=== PATIENT | female | born 1950 | race Caucasian/White ===

== ENCOUNTER 2017-03-10 10:56 | Emergency (ER) | payer MEDICARE, OTHER ==
[2017-03-10 11:55] LABS: ADD MAN DIFF? NO
[2017-03-10 11:59] LABS: BASO % 0 % (0-3); EOS # 0.2 x10^3/uL (0.0-0.7); EOS % 3 % (0-3); HEMATOCRIT 39.9 % (36.0-47.0); LYMPH # 1.7 x10^3/uL (1.0-4.8); LYMPH % 22 % (24-48); MEAN CORPUSCULAR HEMOGLOBIN 28 pg (25-35); MEAN CORPUSCULAR HGB CONC 33 g/dL (31-37); MEAN CORPUSCULAR VOLUME 86 fL (79-100); MONO # 0.4 x10^3/uL (0.0-1.1); MONO % 5 % (0-9); NEUT # 5.3 x10^3uL (1.8-7.7); NEUT % 69 % (31-73); PLATELET COUNT 136 x10^3/uL (140-400); RED BLOOD COUNT 4.62 x10^6/uL (3.50-5.40); WHITE BLOOD COUNT 7.6 x10^3/uL (4.0-11.0)
[2017-03-10] MEDS: IPRATRPIUM/ALBUTEROL 0.5/2.5MG 3 ML NEBU. NEB (12:00)
[2017-03-10 12:06] LABS: ANION GAP 6 (6-14); BLOOD UREA NITROGEN 12 mg/dL (7-20); BUN/CREATININE RATIO 20 (6-20); CALCIUM 8.4 mg/dL (8.5-10.1); CARBON DIOXIDE 34 mmol/L (21-32); CHLORIDE 104 mmol/L (98-107); CREATININE 0.6 mg/dL (0.6-1.0); GFR 100.3; GLUCOSE 108 mg/dL (70-99); POTASSIUM 3.9 mmol/L (3.5-5.1); SODIUM 144 mmol/L (136-145)
[2017-03-10] MEDS: methylPREDNISolone SOD SUCC PF 125 MG/2 ML VIAL. IV (12:09)
[2017-03-10 12:11] LABS: ALBUMIN 3.4 g/dL (3.4-5.0); ALBUMIN/GLOBULIN RATIO 0.9 (1.0-1.7); ALK PHOS 90 U/L (46-116); ALT (SGPT) 24 U/L (14-59); AST (SGOT) 23 U/L (15-37); TOTAL BILIRUBIN 0.3 mg/dL (0.2-1.0); TOTAL PROTEIN 7.1 g/dL (6.4-8.2)
== END 2017-03-10 12:47 | disposition home or self-care (01) ==
LOC: ER 10:56
DX: J40 Bronchitis, not specified as acute or chronic (principal); I10 Essential (primary) hypertension; E78.00 Pure hypercholesterolemia, unspecified; Z88.0 Allergy status to penicillin; Z90.49 Acquired absence of other specified parts of digestive tract; Z90.710 Acquired absence of both cervix and uterus; Z98.51 Tubal ligation status
CPT/HCPCS: 36415; 71046; 80053; 85025; 93005; 94640; 96374; 99285-25; J2930; J7620

== ENCOUNTER → 2018-07-05 | Outpatient (CLI) | payer MEDICARE ==
[2017-03-10 12:00] VITALS: BP 180/74
[~2018-07-05] MED LIST: ALBU0.63 NEB; IPRA3AMP29 NEB; PRED50TA PO
--- NOTE | 2018-07-05 13:15 | RAD ---
ABDOMEN COMPLETE History: Abdominal pain, abdominal aortic aneurysm Comparison: None. Findings: Multiple sonographic images of the abdomen are submitted. Exam is limited due to patient's body habitus. There is no abnormality of the visualized pancreas. No focal hepatic lesion is demonstrated. There is some coarsening of the hepatic echotexture. Right lobe liver measured about 20.6 cm longitudinal. Proximal abdominal aorta measured up to 1.8 cm. Mid abdominal aorta is slightly dilated about 3.4 cm x 3.7 cm in axial planes. Distal abdominal aorta is poorly demonstrated. There is segmental visualization of the inferior vena cava. Right kidney measured 11.2 x 4.7 x 4.5 cm, no hydronephrosis. Left kidney measured 11.7 x 4.8 x 4.8 cm, no hydronephrosis. There is hypoechoic lesion of the mid to superior right kidney with increased through transmission about 1.2 x 1.1 x 1.3 cm, some internal echoes. There are some vessels near the periphery although the lesion is located near the hilar region. The gallbladder is present, small 0.6 cm focus of dependent echogenicity which may be a small gallstone. There is no gallbladder wall thickening or pericholecystic fluid. Spleen measured 12.3 cm. Impression: 1. There is infrarenal abdominal aortic aneurysm up to 3.7 cm, distal abdominal aorta poorly distinguished on this exam. 2. There is hepatic steatosis and hepatomegaly. 3. There is a hypoechoic lesion of the mid to superior right kidney which may be a somewhat complex cyst, some internal echoes and some vessels near the periphery although vessels may be related to the other renal hilar vessels. Six-month follow-up may be beneficial to evaluate stability. 4. There is likely small gallstone. Electronically signed by: Adams Barillas MD (07/05/2018 1:13 PM) [facility][email or web address]
== END | disposition home or self-care (01) ==
LOC: US 09:13
PROVIDERS: ATTEND Physician Assistant
DX: I71.4 Abdominal aortic aneurysm, without rupture (principal); K76.0 Fatty (change of) liver, not elsewhere classified; R91.1 Solitary pulmonary nodule
CPT/HCPCS: 76700

== ENCOUNTER → 2019-02-13 | Outpatient (CLI) | payer MEDICARE ==
[2019-01-17 10:03] VITALS: BP 154/70
[~2019-02-13] MED LIST changes: +AMLO5TAB10 PO; +ASPI-612 PO; +ATOR80TA72 PO; +LOSA100T14 PO; +METO25TA4 PO; +MULT-496 PO; +OMEP40CA45 PO; +RANI150C PO; +REGADENOSON 0.4 MG/5 ML DISP.SYRIN. IV ONE; +ROPI0.25 PO; +SERT100T PO
--- NOTE | 2019-02-13 12:02 | RAD ---
MR#: [id number] Date of Study: 02/13/2019 Ordering Physician: ROSAURA MOSQUERA, Referring Physician: CANDIS AMATO Tech: RT Paulo (R) (N) APPROVED REPORT Test Type: Pharmacological Stress Nurse/Tech: Rachel Eason RN Test Indications: dyspnea, chest pain Cardiac History: HTN, x-smoker Medications: See Electronic Medical Record Medical History: See Electronic Medical Record Resting ECG: SR Resting Heart Rate: 61 bpm Resting Blood Pressure: 165/74mmHg Pretest Chest Pain: None Nurse/Tech Notes lungs CTA, S1S2 Consent: The procedure was explained to the patient in lay terms. Informed consent was witnessed. Jose eout was entered into [employer]. History and Stress Test performed by Rachel Eason RN Pharm. Details Pharmacologic stress testing was performed using 0.4mg per 5ml of regadenoson given intravenously ove r 7-10 seconds. Stress Symptoms Dyspnea, no chest pain POST EXERCISE Reason for Termination: Infusion complete Max HR: 78 bpm Max Blood Pressure: 179/73mmHg Blood Pressure response to exercise: Normal blood pressure response during stress. Heart Rate response to exercise: normal response Chest Pain: No. Arrhythmia: No. ST Change: No. INTERPRETATION Stress EKG Conclusion: The resting EKG shows a sinus rhythm and minimal nonspecific ST T wave changes . The stress EKG shows no significant changes from baseline. No EKG evidence of stress induced ischemia. Imaging Protocol IMAGE PROTOCOL: Rest Tc-99m/stress Tc-99m 1 day Rest: Stress: Viability: Radiopharm.Tc99m ZqwxsypjeTs91c Sestamibi Dose11.3mCi 33mCi Duration 15min. 10min. Img Date 02/13/2019 02/13/2019 Inj-Img Fhpy81ibf. 60min. Rest Admin Site:IV - Left AntecubitalAdministrator:RT Paulo (R)(N) Stress Admin Site: IV - Left AntecubitalAdministrator: XAVIER Garza STRESS DATA End Diast. Vol.88.0mlAv. Heart Rate68.0bpm End Syst. Vol.20.0mlCO Index BSA0.0L/min Myocardial Brya811.0gEject. Ijzipcub95.0% Stress Rates Pk. Fill Rate3.32EDV/secLVtime Pk. Fill 248.71msec Pk. Empty Rate4.00ESV/secLVtime Pk. Cfkci480.57msec 1/3 Pk. Fill1.40EDV/sec Stress Scores Regional WT0.00Summed WT0.00 Regional WM0.00Summed WM0.00 LV Perfusion The stress scans show slight distal anterior thinning but not a clear defect. The rest scans show no significant defects. Nuclear images show no infarct. Nuclear images show no clear reversible ischemia although there is slight distal anterior thinning. Wall Motion LV systolic function is normal with an ejection fraction of > 70%. LV Perf. Quant 17 Seg. SSS1.00 17 Seg. SRS1.00 17 Seg. SDS1.00 Stress Defect Extent (% LAD)8.80Rest Defect Extent (% LAD)0.00Rev. Defect Extent (% LAD)3.80 Stress Defect Extent (% LCX) 0.00Rest Defect Extent (% LCX)0.00Rev. Defect Extent (% LCX)0.00 Stress Defect Extent (% RCA)0.00Rest Defect Extent (% RCA)0.00Rev. Defect Extent (% RCA)0.00 Stress Defect Extent (% LYNETTE)3.00Rest Defect Extent (% LYNETTE)0.00Rev. Defect Extent (% LYNETTE)1.30 Conclusion 1. No EKG evidence of stress induced ischemia. 2. Nuclear images show no infarct. 3. Nuclear images show no clear reversible ischemia although the distal anterior wall has slight thin jyothi. 4. Normal LV systolic function with an EF of > 70%. 5. Moderately low risk Lexiscan nuclear stress test. Signed by : Berto Melo MD Electronically Approved : 02/13/2019 12:01:43
== END | disposition home or self-care (01) ==
LOC: NM 08:08
PROVIDERS: ATTEND Internal Medicine Cardiovascular Disease
DX: R06.09 Other forms of dyspnea (principal); R07.9 Chest pain, unspecified; I10 Essential (primary) hypertension; Z87.891 Personal history of nicotine dependence
CPT/HCPCS: 78452; 93017; A9500; J2785

== ENCOUNTER → 2020-03-28 | Outpatient (CLI) | payer MEDICARE ==
[2019-01-17 10:03] VITALS: BP 154/70
[~2020-03-28] MED LIST changes: +AMLO-186 PO; -AMLO5TAB10 PO; -ASPI-612 PO; +ASPI-886 PO; -OMEP40CA45 PO; +OMEP40CA7 PO; -REGADENOSON 0.4 MG/5 ML DISP.SYRIN. IV ONE
--- NOTE | 2020-03-28 11:14 | KCIC ---
EXAM: DUAL ENERGY X-RAY ABSORPTIOMETRY (DEXA). HISTORY: Postmenopausal screening. COMPARISON: None FINDINGS: DEXA scan was performed of the lumbar spine and of the left hip as below. The bone mineral density in the lumbar spine (L1-L4) is 1.405 g/cm^2, correlating with a T score of 2 .6. Total bone mineral density in the left hip is 0.895 g/cm^2, correlating with a T score of -0.4. IMPRESSION: Normal bone mineral density in the lumbar spine and left hip. METHODOLOGY: Dual energy x-ray absorptiometry was performed to measure bone mineral density. The foll owing analysis is based on the 2019 Official Positions of the International Society for Clinical Dens itometry: Measurements of the hips and the average of L1-L4 are preferred. When the spine and/or hip cannot be feasibly measured or interpreted, or in the setting of hyperparathyroidism, distal radial bone minera l density may be measured. The lumbar spine T-score is based on the average bone mineral density of L1-L4. In the setting of art ifact or anatomic abnormality, some lumbar levels may be excluded, and the remaining levels used for calculation. A single lumbar level is not used for diagnosis, and if only a single level is available for assessment, another anatomic site will be used to assign a diagnosis. The hip T-score is based on the bone mineral density measurement of the femoral neck or total proxima l femur, whichever is lowest. Bilateral mean values are not used for diagnosis. The forearm T-score is derived from 33% of the distal radius of the nondominant forearm. For postmenopausal and perimenopausal women, and men age 50 or older, of all ethnic groups, T-scores are calculated through comparison of the current measurement with the NHANES III database standard fo r females aged 20-29 years. The lowest T-score of the evaluated anatomic sites is used to a ssign a diagnosis based on the World Health Organization densitometric classification. In premenopausal females and males younger than age 50, a Z-score is calculated based on population s pecific reference data for patient sex and self-reported ethnicity. Electronically signed by: Ebonie Krishna MD (03/28/2020 11:12 AM) [id number]
--- NOTE | 2020-03-28 17:47 | KCIC ---
Bilateral digital screening mammograms with 3-D tomosynthesis: Reason for examination: Routine screening. No previous exams for comparison. New baseline. Bilateral mammograms in CC and oblique projections were obtained with 2-D imaging and 3-D tomosynthes is imaging on a Siemens Inspiration unit and reviewed on the workstation. Interpretation was made wit h the benefit of CAD. The skin and nipples show no abnormalities. No abnormal axillary lymph nodes are seen. The breast par enchyma shows scattered fatty and fibroglandular density. (Breast density: Category B.) There are sma ll nodules consistent with intramammary lymph nodes at the 10:00 C position of the right breast and 2 :00 C position of the left breast. There is also however a nodule present posteriorly probably around the 8:30 C position of the right breast 9 cm deep to the nipple and measuring 1 cm in size which is seen on oblique projection. Further evaluation with ultrasound is recommended. There are no other dom inant masses, suspicious calcifications or architectural distortion. Impression: 1 cm nodule posterior in the right breast seen on oblique view probably at the 8:30 C position. Furth er evaluation with ultrasound is recommended. BI-RADS Category 0: Incomplete. Needs additional imaging evaluation. "Our facility is accredited by the [employer] Mammography Program." This patient's information has been entered into a reminder system for the patient to be notified wit h the results of her examination and a target date for the next mammogram. Electronically signed by: Richelle Cates MD (03/28/2020 5:45 PM) [id number]
== END ==
LOC: KCIC MAMMO 08:56
PROVIDERS: ATTEND Physician Assistant
DX: Z12.31 Encounter for screening mammogram for malignant neoplasm of breast (principal); N63.13 Unspecified lump in the right breast, lower outer quadrant; N95.9 Unspecified menopausal and perimenopausal disorder; Z78.0 Asymptomatic menopausal state
CPT/HCPCS: 77063; 77067; 77080

== ENCOUNTER → 2020-04-03 | Outpatient (CLI) | payer MEDICARE ==
[2019-01-17 10:03] VITALS: BP 154/70
[~2020-04-03] MED LIST changes: +OMEP40CA45 PO; -OMEP40CA7 PO
--- NOTE | 2020-04-03 17:57 | RAD ---
DATE: 04/03/2020 EXAM: Right breast ultrasound HISTORY: 70-year-old woman recalled from baseline screening mammogram for mass at 8:30 in the right breast, posterior depth COMPARISON: Screening mammogram 03/28/2020 Technique: Grayscale and color Doppler ultrasound imaging performed by the archives technician and by the radiologist in the area of concern. FINDINGS: At 8:30, 8 cm from the nipple, there is an ovoid hypoechoic mass measuring 9 x 5 x 6 mm. This is parallel in orientation. It has indistinct margins that appear slightly angular or lobulated on some images. No definite fatty hilum. No posterior acoustic shadowing. No axillary lymphadenopathy. IMPRESSION: Suspicious hypoechoic mass at 8:30, 8 cm from the nipple. Recommend ultrasound-guided biopsy. The possibility of ultrasound-guided biopsy versus six-month follow-up ultrasound was discussed with the patient. She she was in agreement with the plan of ultrasound-guided biopsy. BI-RADS CATEGORY: 4 SUSPICIOUS ABNORMALITY- BIOPSY SHOULD BE CONSIDERED RECOMMENDED FOLLOW-UP: BIO BIOPSY RECOMMENDED
== END ==
LOC: US 12:20
PROVIDERS: ATTEND Physician Assistant
DX: N63.10 Unspecified lump in the right breast, unspecified quadrant (principal)
CPT/HCPCS: 76641

== ENCOUNTER → 2020-04-10 | Outpatient (CLI) | payer MEDICARE ==
[2019-01-17 10:03] VITALS: BP 154/70
[~2020-04-10] MED LIST changes: +REGADENOSON 0.4 MG/5 ML DISP.SYRIN. IV ONE
--- NOTE | 2020-04-10 14:36 | RAD ---
MR#: [id number] Date of Study: 04/10/2020 Ordering Physician: ROSAURA MOSQUERA, Referring Physician: CANDIS AMATO Tech: RT Paulo (Romario) (N) APPROVED REPORT Test Type: Pharmacological Stress Nurse/Tech: Telma Delacruz R.N. Test Indications: dyspnea Cardiac History: obese, family hx, asthma,htn, DM Medications: See Electronic Medical Record Medical History: See Electronic Medical Record Resting Heart Rate: 83 bpm Resting Blood Pressure: 143/51mmHg Pretest Chest Pain: No chest pain Nurse/Tech Notes S1S2, lungs CTA Consent: The procedure was explained to the patient in lay terms. Informed consent was witnessed. Jose eout was entered into [email or web address]. History and Stress Test performed by RT Celi Bates) (N) Pharm. Details Pharmacologic stress testing was performed using 0.4mg per 5ml of regadenoson given intravenously ove r 7-10 seconds. Stress Symptoms SOA, stomach ache, low back pain- resolved by end of recovery period POST EXERCISE Reason for Termination: Infusion complete Max HR: 102 bpm Max Blood Pressure: 156/63mmHg Blood Pressure response to exercise: Normal blood pressure response during stress. Heart Rate response to exercise: wnl Chest Pain: No. Arrhythmia: No. INTERPRETATION Stress EKG Conclusion: The resting EKG shows a sinus rhythm and nonspecific ST-T wave changes. The stress EKG shows no significant changes from baseline. No EKG evidence of stress-induced ischemia. Imaging Protocol IMAGE PROTOCOL: Rest Tc-99m/stress Tc-99m 1 day Rest: Stress: Viability: Radiopharm.Tc99m NbilwfrmnCt21d Sestamibi Dose10.5mCi 33mCi Duration 13min. 13min. Img Date 04/10/2020 04/10/2020 Inj-Img Gnsu06ivq. 60min. Rest Admin Site:IV - Left AntecubitalAdministrator:XAVIER Garza Stress Admin Site: IV - Left AntecubitalAdministrator: XAVIER Garza STRESS DATA End Diast. Vol.84.0mlLVEDV index BSA47.0ml End Syst. Vol.19.0mlLVESV index BSA11.0ml Myocardial Xsnc728.0gEject. Rxznhweq82.0% Stress Scores Regional WT0.00Summed WT1.00 Regional WM0.00Summed WM0.00 LV Perfusion The stress scans show no significant defects. The rest scans show no significant defects. Nuclear imaging shows no reversible ischemia or infarct. Wall Motion LV systolic function is normal with no regional wall motion abnormalities and an ejection fraction of greater than 70%. LV Perf. Quant 17 Seg. SSS0.00 17 Seg. SRS0.00 17 Seg. SDS0.00 Stress Defect Extent (% LAD)0.00Rest Defect Extent (% LAD)0.00Rev. Defect Extent (% LAD)0.00 Stress Defect Extent (% LCX) 0.00Rest Defect Extent (% LCX)0.00Rev. Defect Extent (% LCX)0.00 Stress Defect Extent (% RCA)0.00Rest Defect Extent (% RCA)0.00Rev. Defect Extent (% RCA)0.00 Stress Defect Extent (% LYNETTE)0.00Rest Defect Extent (% LYNETTE)0.00Rev. Defect Extent (% LYNETTE)0.00 Conclusion 1. No EKG evidence of stress-induced ischemia. 2. Nuclear imaging shows no reversible ischemia or infarct. 3. LV systolic function is normal with an ejection fraction of greater than 70%. 4. Low risk Lexiscan nuclear stress test. Signed by : Berto Melo MD Electronically Approved : 04/10/2020 14:35:56
--- NOTE | 2020-04-10 14:55 | CARD ---
MR#: [id number] Date of Study: 04/10/2020 Ordering Physician: ROSAURA MOSQUERA, Referring Physician: ROSAURA MOSQUERA, Tech: Chanelle Abigail, [facility] APPROVED REPORT EXAM: Two-dimensional and M-mode echocardiogram with Doppler and color Doppler. Other Information Quality : AverageHR: 88bpm Rhythm : NSR INDICATION Dyspnea RISK FACTORS Hypertension Hyperlipidemia Diabetes 2D DIMENSIONS RVDd1.0 (2.9-3.5cm)Left Atrium(2D)3.3 (1.6-4.0cm) IVSd2.9 (0.7-1.1cm)Aortic Root(2D)2.8 (2.0-3.7cm) LVDd4.5 (3.9-5.9cm)LVOT Diameter2.1 (1.8-2.4cm) PWd1.2 (0.7-1.1cm)LVDs3.0 (2.5-4.0cm) FS (%) 32.6 %SV55.5 ml Aortic Valve AoV Peak Nazario.130.2cm/sAoV VTI25.5cm AO Peak GR.6.8mmHgLVOT Peak Nazario.105.9cm/s LVOT VTI 21.57cmAO Mean GR.4mmHg PURA (VMAX)2.00ui9PQB (VTI)3.02cm2 AI P 1/2 Fvnj351qn Mitral Valve MV E Udbuftdt74.1cm/sMV DECEL TIIQ690os MV A Dqnlufhp35.1cm/sMV OKF25am E/A Ratio0.7MVA (PHT)3.47cm2 TDI E/Lateral E'9.7E/Medial E'8.5 Pulmonary Valve PV Peak Xauzzpql24.0cm/sPV Peak Grad.3mmHg Tricuspid Valve TR P. Okfzjaol149dx/sRAP AIGETBUB0hdXl TR Peak Gr.11yiKoGRCR59vbAw Pulmonary Vein S1 Phlwgjws39.9cm/sD2 Kvhgxxaj47.5cm/s PVa wbppuodk602xlyo LEFT VENTRICLE The left ventricle is normal size. There is mild concentric left ventricular hypertrophy. The left ve ntricular systolic function is normal and the ejection fraction is within normal range. The Ejection Fraction is 50-55%. There is normal LV segmental wall motion. Transmitral Doppler flow pattern is Gra de I-abnormal relaxation pattern. RIGHT VENTRICLE The right ventricle is normal size. There is normal right ventricular wall thickness. The right ventr icular systolic function is normal. ATRIA The left atrium size is normal. The right atrium size is normal. The interatrial septum is intact wit h no evidence for an atrial septal defect or patent foramen ovale as noted on 2-D or Doppler imaging. AORTIC VALVE The aortic valve is thickened but opens well. Doppler and Color Flow revealed trace aortic regurgitat ion. There is no significant aortic valvular stenosis. Calculated aortic valve area is 3.08 cm2 with maximum pressure gradient of 8 mmHg and mean pressure gradient of 5 mmHg. MITRAL VALVE The mitral valve is normal in structure and function. There is no evidence of mitral valve prolapse. There is no mitral valve stenosis. Doppler and Color Flow revealed no mitral valve regurgitation note d. TRICUSPID VALVE The tricuspid valve is normal in structure and function. Doppler and Color Flow revealed trace tricus pid regurgitation with an estimated PAP of 33 mmHg. There is no tricuspid valve stenosis. PULMONIC VALVE The pulmonic valve is not well visualized. Doppler and Color Flow revealed trace pulmonic valvular re gurgitation. GREAT VESSELS The aortic root is normal in size. The IVC is normal in size and collapses >50% with inspiration. PERICARDIAL EFFUSION There is no evidence of significant pericardial effusion. Critical Notification Critical Value: No <Conclusion> The left ventricle is normal size. The left ventricular systolic function is normal and the ejection fraction is within normal range. The Ejection Fraction is 50-55%. There is normal LV segmental wall motion. There is mild concentric left ventricular hypertrophy. Doppler and Color Flow revealed trace aortic regurgitation. There is no significant aortic valvular stenosis. Doppler and Color Flow revealed no mitral valve regurgitation noted. Doppler and Color Flow revealed trace tricuspid regurgitation with an estimated PAP of 33 mmHg. Signed by : Berto Melo MD Electronically Approved : 04/10/2020 14:55:05
== END ==
LOC: NM 10:03
PROVIDERS: ATTEND Internal Medicine Cardiovascular Disease
DX: I51.7 Cardiomegaly (principal); R06.00 Dyspnea, unspecified
CPT/HCPCS: 78452; 93017; 93306; A9500; J2785

== ENCOUNTER → 2020-04-15 | Outpatient (CLI) | payer MEDICARE ==
[2019-01-17 10:03] VITALS: BP 154/70
[~2020-04-15] MED LIST changes: +LIDOCAINE 1% Multi-Dose 20 ML VIAL. INJ ONE; -REGADENOSON 0.4 MG/5 ML DISP.SYRIN. IV ONE
--- NOTE | 2020-04-15 14:19 | RAD ---
Examination: 1. Ultrasound-guided right breast core needle biopsy. 2. Right digital postprocedure mammogram. INDICATION: 70-year-old woman recalled from screening for mass in the posterior lower outer right columb[place] ast recommended for ultrasound-guided core needle biopsy. COMPARISON: Bilateral mammogram of 03/28/2020 and right breast ultrasound of 04/03/2020 TECHNIQUE AND FINDINGS: Informed consent was obtained and an appropriate procedural pause observed. Using standard sterile te chnique, ultrasound guidance and local anesthesia, multiple 14-gauge core biopsy samples of the mass at the right 8:30 o'clock position 8 cm from nipple were obtained and placed in formalin. An open pad lock shaped biopsy marker was deployed at the biopsy site and hemostasis ensured with direct breast c ompression for several minutes. Puncture site was dressed. Digital right postprocedure mammogram showed scattered fibroglandular densities and satisfactory plac ement of a biopsy marker in the periphery of the oval mass recalled from screening are recommended fo r biopsy. No postbiopsy hematoma. Postprocedure instructions were provided and patient discharged in stable condition to follow her ref erring physician. IMPRESSION: Successful right breast ultrasound-guided core needle biopsy. Pathology results are pending. An adden dum will be issued once pathology results become available. Consideration may be given to short-term follow-up should the biopsy reveal benign pathology results. Electronically signed by: Karen Jones MD (04/15/2020 2:17 PM) [id number]
--- NOTE | 2020-04-15 16:02 | RAD ---
EXAM: ABDOMINAL ULTRASOUND. HISTORY: Abdominal pain. COMPARISON: Abdominal ultrasound of 07/05/2018. FINDINGS: Sonographic evaluation of the abdomen was performed. Liver is enlarged measuring 22.6 cm in length and is echogenic, compatible fatty infiltration. There are no focal lesions. The spleen measures 13.2 cm and is normal in size. The gallbladder contains a polyp but is otherwise is unremarkable without evidence of stones, wall th ickening or pericholecystic fluid. There is no sonographic Nixon sign. The common duct measures 8 mm . The visualized portions of the head of the pancreas reveal no abnormality. The right kidney measures 11.3 cm. Cortical thickness and echogenicity are preserved. There is no hyd ronephrosis. The left kidney measures 12.4 cm. Cortical thickness and echogenicity are preserved. The re is no hydronephrosis. Visualized abdominal aorta measures 3.1 x 3.4 cm AP by transverse. Normal caliber IVC. IMPRESSION: 1. Fatty liver with extrahepatic biliary dilation to 8 mm with no choledocholithiasis or cholelithias is identified. 2. Infrarenal abdominal aortic ectasia to 3.0 cm AP, distal abdominal aorta not well seen. Consider a bdominal MRI with MRCP in further evaluation of the abdominal aorta, liver, and hepatobiliary tree. Electronically signed by: Karen Jones MD (04/15/2020 3:59 PM) [id number]
--- NOTE | 2020-04-17 14:10 | PATHOLOGY ---
[facility] Accession Number: [id number] . 01 Material submitted: . breast - RIGHT BREAST MASS 8:30 8CMFN . 02 Diagnosis: Breast tissue, right breast mass 8:30 needle biopsies: - Cystic change with apocrine metaplasia. (JPM:[facility] 04/17/2020) RUST 04/17/2020 0818 Local . 02 Comment: Sections of the right breast mass 8:30 needle biopsy reveal a cluster of cysts showing apocrine metaplasia. There is mild chronic inflammation. There is no atypia or evidence of malignancy. (JPM:[facility] 04/17/2020) . 02 Electronically signed: . Lanre Medeiros MD, Pathologist NPI- [id number] . 01 Gross description: . The specimen is received in formalin, labeled "Mariana Garcia, right breast". Received is a single needle core of fibrofatty tissue measuring 1.4 cm in length by 0.3 cm in diameter. The specimen is submitted entirely in cassette A1. The cold ischemic time is less than 1 minute. The total formalin fixation time is 13 hours and 13 minutes. ([facility]; 04/15/2020) QAC/QAC 04/17/2020 0817 Local . 02 Pathologist provided ICD-10: N60.81 . 02 CPT . 350097 Specimen Comment: Report sent to Performed at: 01 [facility] [address], [place] [id number] MD Vik Howe MD Phone: [phone] Performed at: 02 [facility] [address], [place] [id number] MD Lanre Medeiros MD Phone: [phone]
== END ==
LOC: US 07:05
PROVIDERS: ATTEND Physician Assistant
DX: N63.13 Unspecified lump in the right breast, lower outer quadrant (principal); N60.81 Other benign mammary dysplasias of right breast; R92.8 Other abnormal and inconclusive findings on diagnostic imaging of breast; R10.11 Right upper quadrant pain; I71.4 Abdominal aortic aneurysm, without rupture; K76.0 Fatty (change of) liver, not elsewhere classified; K21.9 Gastro-esophageal reflux disease without esophagitis; F41.9 Anxiety disorder, unspecified; F32.9 Major depressive disorder, single episode, unspecified; Z87.891 Personal history of nicotine dependence; Z72.89 Other problems related to lifestyle; Z98.890 Other specified postprocedural states; Z79.899 Other long term (current) drug therapy; Z88.0 Allergy status to penicillin
CPT/HCPCS: 19083; 76700; 77065; C1713

== ENCOUNTER → 2020-10-15 | Outpatient (CLI) | payer MEDICARE ==
[2019-01-17 10:03] VITALS: BP 154/70
[~2020-10-15] MED LIST changes: -LIDOCAINE 1% Multi-Dose 20 ML VIAL. INJ ONE; -OMEP40CA45 PO; +OMEP40CA7 PO
--- NOTE | 2020-10-15 14:24 | RAD ---
EXAM: Right breast diagnostic mammogram with tomosynthesis; right breast sonogram. HISTORY: 70-year-old female presents for evaluation status post benign right breast biopsy. TECHNIQUE: Full-field digital craniocaudal and mediolateral oblique 2D and 3D tomosynthesis images of the right breast are obtained for evaluation. Computer aided detection was applied. Sonographic imag ing of the right breast targeted to the site of prior biopsy was also performed. COMPARISON: 04/15/2020, 04/03/2020, 03/28/2020 BREAST PARENCHYMAL DENSITY: Level B - Scattered fibroglandular densities. FINDINGS: There is a biopsy clip within the posterior 9:00 position of the right breast. The previous ly demonstrated nodular density in this location is no longer seen, consistent with interval biopsy. There are stable areas of asymmetry and nodularity elsewhere within the right breast. There are few b enign calcifications. There is no new suspicious mammographic finding. Sonographic imaging of the right breast demonstrates a biopsy clip at the posterior 8:30 position 8 c m from the nipple. No suspicious lesion is seen. IMPRESSION: 1. No new suspicious mammographic or sonographic finding. 2. BI-RADS Category 2: Benign finding(s). RECOMMENDATION: Bilateral mammography in 6 months is recommended to correspond with the previously es tablished bilateral mammography interval. If your mammogram demonstrates that you have dense breast tissue, which could hide abnormalities, and if you have other risk factors for breast cancer that have been identified, you might benefit from s upplemental screening tests that may be suggested by your ordering physician. Dense breast tissue, i n and of itself, is a relatively common condition. This information is not provided to cause undue c oncern, but rather to raise your awareness and to promote discussion with your physician regarding th e presence of other risk factors, in addition to dense breast tissue. A report of your mammography re sults will be sent to you and your physician. You should contact your physician if you have any ques tions or concerns regarding this report. Mammography is a sensitive method for finding small breast cancers, but it does not detect them all a nd is not a substitute for careful clinical examination. A negative mammogram does not negate a clin ically suspicious finding and should not result in delay in biopsying a clinically suspicious abnorma lity. PQRS compliance statement - Patient information was entered into a reminder system with a target due date for the next mammogram. "Our facility is accredited by the [employer] Mammography [employer]." Electronically signed by: Willow Monaco MD (10/15/2020 2:21 PM) [id number]
== END ==
LOC: MAMMO 13:30
PROVIDERS: ATTEND Physician Assistant
DX: R92.8 Other abnormal and inconclusive findings on diagnostic imaging of breast (principal)
CPT/HCPCS: 76641; 77065; G0279; 77061